=== PATIENT | female | born 1955 | race Hispanic/Latino ===

== ENCOUNTER 2017-11-02 07:32 | Emergency (ER) | payer BC, SELFPAY ==
[2017-11-02] MEDS ORDERED: MAGNE/ALUM HYDROXD 30 ML UCUP ONE (08:00)
[2017-11-02] MEDS ORDERED: LIDOCAINE VISCOUS 2% SOLN 15 ML UDC ONE (08:01)
[2017-11-02 08:21] LABS: Absolute Lymphocytes (CBC) 1.3 K/uL (0.7-4.9); Absolute Monocytes 0.5 K/uL (0.1-1.3); Absolute Neutrophil 3.5 K/uL (1.8-8.0); Basophils % 0.6 % (0-1.3); Eosinophils % 1.8 % (0-4.4); Hematocrit 40.5 % (36.0-45.0); Lymphocytes % 24.6 % (15.3-44.8); MCH 29.7 pg (27.0-35.0); MCV 87.5 fL (80-100); MPV 7.5 fL (7.6-11.3); Monocytes % 8.6 % (3.3-12.3); RBC Red Blood Cell Count 4.63 M/uL (3.86-4.86)
[2017-11-02 08:30] LABS: ALT/SGPT 255 U/L (12-78); Albumin 3.7 g/dL (3.4-5.0); Alkaline Phosphatase 179 U/L (45-117); BUN Blood Urea Nitrogen 12 mg/dL (7-18); Bicarbonate 29 mmol/L (21-32); Bilirubin Direct 0.2 mg/dL (0-0.2); Bilirubin Total 0.5 mg/dL (0.2-1.0); CKMB Creatine Kinase MB < 1.0 ng/mL (0.3-3.6); Creatine Phosphokinase 35 U/L (26-192); Glucose Level 108 mg/dL (74-106); Lipase 104 U/L (73-393); Potassium 3.8 mmol/L (3.5-5.1); Protein, Total 8.1 g/dL (6.4-8.2); Sodium Level 136 mmol/L (136-145)
[2017-11-02 08:34] LABS: AST/SGOT 411 U/L (15-37)
--- NOTE | 2017-11-02 08:53 | RAD REPORT ---
EXAM DESCRIPTION: RAD - Chest Single View - 11/02/2017 8:17 am CLINICAL HISTORY: CHEST PAIN Chest pain. COMPARISON: No comparisons FINDINGS: Portable technique limits examination quality. The lungs are grossly clear. The heart is normal in size. No displaced fractures. IMPRESSION: No acute intrathoracic process suspected.
--- NOTE | 2017-11-02 10:50 | EKG ---
Test Date: 2017-11-02 Test Time: 07:43:06 Horizontal Boring Mill Operator: MARILYN MEASUREMENT RESULTS: Intervals: Rate: 69 [place]: 172 QRSD: 88 QT: 408 QTc: 437 [place]: P: 30 [place]: 172 QRS: 5 T: 13 INTERPRETIVE STATEMENTS: Normal sinus rhythm Possible Anterior infarct, age undetermined Abnormal ECG No previous ECG available for comparison Electronically Signed On 11-02-17 10:49:30 CDT by Georges Deshpande
--- NOTE | 2017-11-02 10:53 | RAD REPORT ---
EXAM DESCRIPTION: CTAbdomen Pelvis W Contrast - 11/02/2017 10:37 am CLINICAL HISTORY: Abdominal pain. nausea, elevated LFT COMPARISON: No comparisons TECHNIQUE: Biphasic CT imaging of the abdomen and pelvis was performed with 100 ml non-ionic IV cont rast. All CT scans are performed using dose optimization technique as appropriate and may include automated exposure control or mA/KV adjustment according to patient size. FINDINGS: The lung bases are clear. Mild fatty liver is seen. Cholecystectomy is noted with mildly prominent intra and extrahepatic bilia ry tree, likely secondary to reservoir effect. The spleen, pancreas, adrenal glands and kidneys are w ithin normal limits. No bowel obstruction, free air, free fluid or abscess. The appendix is normal. No evidence of signi ficant lymphadenopathy. Lumbosacral degenerative changes. IMPRESSION: Fatty liver. Status post cholecystectomy.
--- NOTE | 2017-11-02 12:55 | ER ---
Nurse's Notes [facility] Name: Marce Vega Age: 62 yrs Sex: Female : 1955 Arrival Date: 11/02/2017 Time: 07:35 Bed 5 Private MD: Makeda Patton K Diagnosis: Chest pain, unspecified;Gastro-esophageal reflux disease Presentation: 11/02 07:38 Presenting complaint: Patient states: this morning around 0200 c/o nausea and sg midsternal chest pain described as burning, radiating to the back described as sharp pain, pt reports taking 2 pepcid for the burning sensation but no relief, pt reports having had to take BP meds in the past but was taken off the medications. Transition of care: patient was not received from another setting of care. Onset of symptoms was November 02, 2017. Risk Assessment: Do you want to hurt yourself or someone else? Patient reports no desire to harm self or others. Initial Sepsis Screen: Does the patient meet any 2 criteria? No. Patient's initial sepsis screen is negative. Does the patient have a suspected source of infection? No. Patient's initial sepsis screen is negative. Care prior to arrival: None. 07:38 Method Of Arrival: Ambulatory sg 07:38 Acuity: HOLLI 3 sg Historical: - Allergies: 07:40 No Known Allergies; sg - Home Meds: 07:56 Pepcid AC Oral [Active]; Cholesterol Medication [Active]; sg - PMHx: 07:40 High Cholesterol; Acid Reflux; sg - PSHx: 07:40 Cholecystectomy; Hysterectomy; sg - Immunization history:: Adult Immunizations up to date. - Social history:: Smoking status: Patient uses tobacco products, denies chronic smoking, but will smoke occasionally. - Ebola Screening: : Patient negative for fever greater than or equal to 101.5 degrees Fahrenheit, and additional compatible Ebola Virus Disease symptoms Patient denies exposure to infectious person Patient denies travel to an Ebola-affected area in the 21 days before illness onset No symptoms or risks identified at this time. - Family history:: not pertinent. - Hospitalizations: : No recent hospitalization is reported. Screenin:50 Abuse screen: Denies threats or abuse. Denies injuries from another. Nutritional sv screening: No deficits noted. Tuberculosis screening: No symptoms or risk factors identified. Fall Risk None identified. Assessment: 07:50 General: Appears in no apparent distress. uncomfortable, well developed, Behavior is sv calm, cooperative, appropriate for age, Reports that she started taking atorvastatin last week d/t high cholesterol levels and she did not take her dose last night. Pain: Complains of pain in epigastric area, right upper quadrant and left upper quadrant Pain does not radiate. Pain currently is 6 out of 10 on a pain scale. Quality of pain is described as burning, Pain began 0200 Is intermittent, Alleviated by nothing. Also complains of nausea. Neuro: Level of Consciousness is awake, alert, obeys commands, Oriented to person, place, time, situation, Moves all extremities. Full function. Cardiovascular: Patient's skin is warm and dry. Pulses are 3+ in right brachial artery and left brachial artery Rhythm is sinus rhythm. Respiratory: Respiratory effort is even, unlabored, Respiratory pattern is regular, symmetrical. GI: Reports epigastric pain, nausea. Derm: Skin is normal. Musculoskeletal: Range of motion: intact in all extremities. 09:15 Reassessment: Patient appears in no apparent distress at this time. Patient and/or sv family updated on plan of care and expected duration. Pain level reassessed. Patient is alert, oriented x 3, equal unlabored respirations, skin warm/dry/pink. Vital Signs: 07:37 Temp 97.3; sg 07:46 BP 135 / 86; Pulse 67; Resp 17; Temp 97.3(TE); Pulse Ox 96% on R/A; Weight 74.39 kg; sg Height 5 ft. 0 in. (152.40 cm); Pain 6/10; 09:00 BP 148 / 78; Pulse 63; Resp 18; Pulse Ox 97% on R/A; dh3 09:59 BP 141 / 76; Pulse 60 MON; Resp 15; Pulse Ox 97% on R/A; sv 10:30 BP 147 / 71; Pulse 54; Resp 15; Pulse Ox 97% on R/A; dh3 11:00 BP 149 / 67; Pulse 53; Resp 15; Pulse Ox 98% on R/A; dh3 12:00 BP 145 / 78; Pulse 54; Resp 16; Pulse Ox 99% on R/A; dh3 13:09 BP 146 / 72; Pulse 54; Resp 18; Temp 97.9; Pulse Ox 99% on R/A; ph 07:46 Body Mass Index 32.03 (74.39 kg, 152.40 cm) sg 09:59 Sinus Rhythm sv ED Course: 07:35 Patient arrived in ED. sb2 07:36 Makeda Patton MD is Private Physician. sb2 07:39 Triage completed. sg 07:39 Arm band placed on. sg 07:42 Mckinley Baron MD is Attending Physician. rn 07:43 Ariane Perkins RN is Primary Nurse. sv 07:50 Patient has correct armband on for positive identification. Placed in gown. Bed in low sv position. Call light in reach. awake overnight monitor on. Pulse ox on. NIBP on. Door closed. Head of bed elevated. 07:50 Initial lab(s) drawn, by me, sent to lab. Inserted saline lock: 20 gauge in left sv antecubital area, using aseptic technique. Blood collected. Flushed left antecubital with 5 ml normal saline. 07:50 Patient maintains SpO2 saturation greater than 95% on room air. sv 08:02 EKG done, by police crime scene technician. reviewed by Mckinley Baron MD. at1 08:12 X-ray(s) taken. sv 08:15 XRAY Chest (1 view) In Process Unspecified. EDMS 09:15 Warm blanket given. sv 10:35 CT completed. Patient tolerated procedure well. Patient moved to CT via wheelchair. mw3 Patient moved back from CT. 10:38 CT Abd/Pelvis - W/Contrast In Process Unspecified. EDMS 11:13 Repeat lab(s) drawn. by me, sent to lab. sv 12:54 Ney Velasquez MD is Referral Physician. rn Administered Medications: 08:07 Drug: GI Cocktail without - (Maalox Suspension 30 ml, Lidocaine Liquid 2 % 15 sv ml) Route: PO; 08:30 Follow up: Response: No adverse reaction sv Outcome: 12:55 Discharge ordered by . rn 13:10 Patient left the ED. ph Signatures: Dispatcher [employer] EDMS Ariane Perkins RN RN sv Singh Larsen RN RN sg Nieto, Roman, MD MD rn gonzales, Amanda, vascular neurologist EKG Tat1 Nohelia Gutierrez RN RN Marianela Storey 3 Gerri Alejandro sb2 Jennifer Cisneros mw3 Corrections: (The following items were deleted from the chart) 08:35 07:50 General: Appears in no apparent distress. uncomfortable, well developed, Behavior sv is calm, cooperative, appropriate for age, sv
--- NOTE | 2017-11-02 12:55 | EDPHYS ---
Physician Documentation [facility] Name: Marce Vega Age: 62 yrs Sex: Female : 1955 Arrival Date: 11/02/2017 Time: 07:35 Bed 5 Private MD: Makeda Patton K ED Physician Mckinley Baron HPI: 11/02 07:56 This 62 yrs old Female presents to ER via Ambulatory with complaints of Chest rn Pain, Nausea, Back Pain. 07:57 The patient or guardian reports chest pain that is located primarily in the substernal rn area. Onset: this morning. The pain radiates to The chest pain is described as burning. Duration: The patient or guardian reports a single episode, that is still ongoing. Severity of pain: At its worst the pain was mild in the emergency department the pain is unchanged. The patient has experienced a previous episode. Reports substernal chest pain/burning, radiates to back, began around 0200, assoc with nausea, had diarrhea earlier in week but resolved with Imodium. Denies fever/abd pain. . Historical: - Allergies: 07:40 No Known Allergies; sg - Home Meds: 07:56 Pepcid AC Oral [Active]; Cholesterol Medication [Active]; sg - PMHx: 07:40 High Cholesterol; Acid Reflux; sg - PSHx: 07:40 Cholecystectomy; Hysterectomy; sg - Immunization history:: Adult Immunizations up to date. - Social history:: Smoking status: Patient uses tobacco products, denies chronic smoking, but will smoke occasionally. - Ebola Screening: : Patient negative for fever greater than or equal to 101.5 degrees Fahrenheit, and additional compatible Ebola Virus Disease symptoms Patient denies exposure to infectious person Patient denies travel to an Ebola-affected area in the 21 days before illness onset No symptoms or risks identified at this time. - Family history:: not pertinent. - Hospitalizations: : No recent hospitalization is reported. ROS: 07:57 Constitutional: Negative for fever, chills, and weight loss, Eyes: Negative for injury, rn pain, redness, and discharge, Neck: Negative for injury, pain, and swelling, Cardiovascular: + chest pain Respiratory: Negative for shortness of breath, cough, wheezing, and pleuritic chest pain, Abdomen/GI: Negative for abdominal pain, diarrhea, and constipation, Back: Negative for injury and pain, MS/Extremity: Negative for injury and deformity, Skin: Negative for injury, rash, and discoloration, Neuro: Negative for headache, weakness, numbness, tingling, and seizure. Exam: 07:57 Constitutional: This is a well developed, well nourished patient who is awake, alert, rn and in no acute distress. Head/Face: Normocephalic, atraumatic. Eyes: Pupils equal round and reactive to light, extra-ocular motions intact. Lids and lashes normal. Conjunctiva and sclera are non-icteric and not injected. Cornea within normal limits. Periorbital areas with no swelling, redness, or edema. Neck: Trachea midline, no thyromegaly or masses palpated, and no cervical lymphadenopathy. Supple, full range of motion without nuchal rigidity, or vertebral point tenderness. No Meningismus. Cardiovascular: Regular rate and rhythm with a normal S1 and S2. No gallops, murmurs, or rubs. Normal PMI, no JVD. No pulse deficits. Respiratory: Lungs have equal breath sounds bilaterally, clear to auscultation and percussion. No rales, rhonchi or wheezes noted. No increased work of breathing, no retractions or nasal flaring. Abdomen/GI: Soft, non-tender, with normal bowel sounds. No distension or tympany. No guarding or rebound. No evidence of tenderness throughout. MS/ Extremity: Pulses equal, no cyanosis. Neurovascular intact. Full, normal range of motion. Equal circumference. Neuro: Awake and alert, GCS 15, oriented to person, place, time, and situation. Cranial nerves II-XII grossly intact. Motor strength 5/5 in all extremities. Sensory grossly intact. Cerebellar exam normal. Normal gait. Vital Signs: 07:37 Temp 97.3; sg 07:46 BP 135 / 86; Pulse 67; Resp 17; Temp 97.3(TE); Pulse Ox 96% on R/A; Weight 74.39 kg; sg Height 5 ft. 0 in. (152.40 cm); Pain 6/10; 09:00 BP 148 / 78; Pulse 63; Resp 18; Pulse Ox 97% on R/A; dh3 09:59 BP 141 / 76; Pulse 60 MON; Resp 15; Pulse Ox 97% on R/A; sv 10:30 BP 147 / 71; Pulse 54; Resp 15; Pulse Ox 97% on R/A; dh3 11:00 BP 149 / 67; Pulse 53; Resp 15; Pulse Ox 98% on R/A; dh3 12:00 BP 145 / 78; Pulse 54; Resp 16; Pulse Ox 99% on R/A; dh3 13:09 BP 146 / 72; Pulse 54; Resp 18; Temp 97.9; Pulse Ox 99% on R/A; ph 07:46 Body Mass Index 32.03 (74.39 kg, 152.40 cm) sg 09:59 Sinus Rhythm sv MDM: 07:42 Patient medically screened. rn 12:52 Differential diagnosis: esophagitis, gastritis, gastroesophageal reflux disease (GERD), rn pancreatitis, peptic ulcer disease, pleurisy. Data reviewed: vital signs, nurses notes, lab test result(s), EKG, radiologic studies, CT scan, and as a result, I will discharge patient. Counseling: I had a detailed discussion with the patient and/or guardian regarding: the historical points, exam findings, and any diagnostic results supporting the discharge/admit diagnosis, lab results, radiology results, the need for outpatient follow up, to return to the emergency department if symptoms worsen or persist or if there are any questions or concerns that arise at home. Response to treatment: the patient's symptoms have mildly improved after treatment. Special discussion: I discussed with the patient/guardian in detail that at this point there is no indication for admission to the hospital. It is understood, however, that if the symptoms persist or worsen the patient needs to return immediately for re-evaluation. ED course: Recommend GI f/u and daily antacid medication, CT shows only fatty liver and has had gallbladder removed, will dc home. . 11/02 07:52 Order name: Basic Metabolic Panel; Complete Time: 09:24 11/02 07:52 Order name: CBC with Diff; Complete Time: 08: rn 11/02 07:52 Order name: Ckmb; Complete Time: 09:24 rn 11/02 07:52 Order name: CPK; Complete Time: 09: rn 11/02 07:52 Order name: LFT's; Complete Time: 09:24 rn 11/02 07:52 Order name: Troponin (emerg Dept Use Only); Complete Time: 08:11/02 07:52 Order name: XRAY Chest (1 view); Complete Time: 09:24 rn 11/02 07:52 Order name: EKG; Complete Time: 07:52 rn 11/02 07:52 Order name: Cardiac monitoring; Complete Time: 08:08 rn 11/02 07:52 Order name: Lipase; Complete Time: 09:24 rn 11/02 08:24 Order name: Urine Dipstick--Ancillary (enter results) ag 11/02 08:34 Order name: CT Abd/Pelvis - W/Contrast; Complete Time: 11:04 rn 11/02 11:04 Order name: Troponin (emerg Dept Use Only); Complete Time: 12:52 rn 11/02 07:52 Order name: EKG - Nurse/Tech; Complete Time: 08:08 rn 11/02 07:52 Order name: IV Saline Lock; Complete Time: 08:08 rn 11/02 07:52 Order name: Labs collected and sent; Complete Time: 08:08 rn 11/02 07:52 Order name: O2 Per Protocol; Complete Time: 08:08 rn 11/02 07:52 Order name: O2 Sat Monitoring; Complete Time: 08:08 rn 11/02 07:52 Order name: Urine Dipstick-Ancillary (obtain specimen); Complete Time: 08:08 rn Administered Medications: 08:07 Drug: GI Cocktail without - (Maalox Suspension 30 ml, Lidocaine Liquid 2 % 15 sv ml) Route: PO; 08:30 Follow up: Response: No adverse reaction sv Disposition: 11/02/17 12:55 Discharged to Home. Impression: Chest pain, unspecified, Gastro-esophageal reflux disease. - Condition is Stable. - Discharge Instructions: Nonspecific Chest Pain, Gastroesophageal Reflux Disease, Adult. - Medication Reconciliation Form, Thank You Letter, Antibiotic Education, Prescription Opioid Use, Work release form form. - Follow up: Ney Velasquez MD; When: As needed; Reason: Recheck today's complaints, Re-evaluation by your physician. - Problem is new. - Symptoms have improved. Signatures: Dispatcher [employer] Ariane Arrington RN RN sv Gay, Steven, RN RN sg Nieto, Roman, MD MD rn Hall, Patricia, RN RN ph Corrections: (The following items were deleted from the chart) 13:10 12:55 11/02/2017 12:55 Discharged to Home. Impression: Chest pain, unspecified; ph Gastro-esophageal reflux disease. Condition is Stable. Forms are Medication Reconciliation Form, Thank You Letter, Antibiotic Education, Prescription Opioid Use. Follow up: Ney Velasquez; When: As needed; Reason: Recheck today's complaints, Re-evaluation by your physician. Problem is new. Symptoms have improved. rn
[2017-11-02 15:10] LABS: Urine Blood 2+ (NEG); Urine Glucose NEGATIVE (NEG); Urine Protein TRACE (NEG); Urine Specific Gravity 1.015 (1.005-1.030)
== END 2017-11-02 13:10 | disposition home or self-care (01) ==
LOC: ER 07:32
DX: K21.9 Gastro-esophageal reflux disease without esophagitis (principal); E78.00 Pure hypercholesterolemia, unspecified; Z72.0 Tobacco use
CPT/HCPCS: 36415; 71045; 74177; 80048; 80076; 81003; 82550; 82553; 83690; 84484; 85025; 93005; 99285; Q9967

== ENCOUNTER 2019-02-22 15:05 | Emergency (ER) | payer SELFPAY ==
[2019-02-22 16:06] LABS: Absolute Lymphocytes (CBC) 2.9 K/uL (0.7-4.9); Basophils % 0.7 % (0-1.3); Hematocrit 37.4 % (36.0-45.0); MPV 7.8 fL (7.6-11.3); RBC Red Blood Cell Count 4.21 M/uL (3.86-4.86)
[2019-02-22 16:10] LABS: Protime INR 1.07
[2019-02-22 16:25] LABS: ALT/SGPT 72 U/L (12-78); AST/SGOT 38 U/L (15-37); Albumin 3.9 g/dL (3.4-5.0); Alkaline Phosphatase 128 U/L (45-117); BUN Blood Urea Nitrogen 10 mg/dL (7-18); Bicarbonate 27 mmol/L (21-32); Bilirubin Direct < 0.1 mg/dL (0-0.2); Bilirubin Total 0.4 mg/dL (0.2-1.0); Glucose Level 97 mg/dL (74-106); Magnesium 2.3 mg/dL (1.8-2.4); NT PRO-BNP 22 pg/mL (<125); Potassium 3.9 mmol/L (3.5-5.1); Protein, Total 7.7 g/dL (6.4-8.2); Sodium Level 141 mmol/L (136-145); Troponin (Emerg Dept Use Only) < 0.02 ng/mL (0.0-0.045)
--- NOTE | 2019-02-22 16:27 | RAD REPORT ---
EXAM DESCRIPTION: RAD - Chest Single View - 02/22/2019 4:03 pm CLINICAL HISTORY: Abdominal pain, epigastric pain COMPARISON: October 2017 TECHNIQUE: AP portable chest image was obtained 1600 hours . FINDINGS: Lungs are clear. Right hemidiaphragm elevation again noted. Trachea is midline. Heart and vasculature are normal. No measurable pleural effusion and no pneumothorax. No acute bony abnormality seen. No acute aortic findings suspected. IMPRESSION: No acute cardiopulmonary process. No significant change from comparison.
--- NOTE | 2019-02-22 17:13 | EKG ---
Test Date: 2019-02-22 Test Time: 15:12:41 Administrative Volunteer: MARILYN MEASUREMENT RESULTS: Intervals: Rate: 49 [place]: 178 QRSD: 86 QT: 434 QTc: 392 [place]: P: 41 [place]: 178 QRS: 14 T: 31 INTERPRETIVE STATEMENTS: Sinus bradycardia Possible Anterior infarct, age undetermined Abnormal ECG Compared to ECG 11/02/2017 07:43:06 Sinus rhythm no longer present Myocardial infarct finding still present Electronically Signed On 02-22-19 17:12:33 CDT by Georges Deshpande
--- NOTE | 2019-02-22 17:38 | ER ---
Nurse's Notes [facility] Name: Marce Vega Age: 63 yrs Sex: Female : 1955 Arrival Date: 02/22/2019 Time: 15:07 Bed 5 Private MD: Diagnosis: Epigastric pain Presentation: 02/22 15:09 Presenting complaint: Intermittent epigastric pain and nausea x 5 days. Pt reports hb of father 1 week ago, she was sole caregiver. Transition of care: patient was not received from another setting of care. Onset of symptoms was February 18, 2019. Risk Assessment: Do you want to hurt yourself or someone else? Patient reports no desire to harm self or others. Initial Sepsis Screen: Does the patient meet any 2 criteria? No. Patient's initial sepsis screen is negative. Does the patient have a suspected source of infection? No. Patient's initial sepsis screen is negative. Care prior to arrival: None. 15:09 Method Of Arrival: Ambulatory hb 15:09 Acuity: HOLLI 3 hb Triage Assessment: 15:10 General: Appears in no apparent distress. comfortable, Behavior is cooperative, bp appropriate for age, anxious. Pain: Complains of pain in epigastric area. EENT: No deficits noted. Neuro: No deficits noted. Cardiovascular: Rhythm is sinus bradycardia. Respiratory: No deficits noted. GI: Abdomen is obese. : No signs and/or symptoms were reported regarding the genitourinary system. Musculoskeletal: No deficits noted. Historical: - Allergies: 15:11 No Known Allergies; hb - Home Meds: 15:11 cholesterol medication [Active]; Pepcid AC Oral [Active]; hb - PMHx: 15:11 acid reflux; High Cholesterol; hb - PSHx: 15:11 Cholecystectomy; Hysterectomy; hb - Immunization history:: Adult Immunizations up to date. - Social history:: Smoking status: Patient/guardian denies using tobacco. - Ebola Screening: : No symptoms or risks identified at this time. Screenin:01 Abuse screen: Denies threats or abuse. Denies injuries from another. Nutritional mg2 screening: No deficits noted. Tuberculosis screening: No symptoms or risk factors identified. Fall Risk IV access (20 points). Assessment: 16:02 General: Appears in no apparent distress. comfortable, Behavior is calm, cooperative. mg2 Pain: Complains of pain in epigastrium Pain does not radiate. Pain currently is 4 out of 10 on a pain scale. Quality of pain is described as aching, Pain began gradually. Neuro: Level of Consciousness is awake, alert, obeys commands, Oriented to person, place, time, situation. Cardiovascular: Capillary refill < 3 seconds Patient's skin is warm and dry. Respiratory: Airway is patent Respiratory effort is even, unlabored, Respiratory pattern is regular, symmetrical. GI: Reports epigastric pain, nausea. : No signs and/or symptoms were reported regarding the genitourinary system. EENT: No signs and/or symptoms were reported regarding the EENT system. Derm: Skin is intact, is healthy with good turgor, Skin is pink, warm \T\ dry. normal. Musculoskeletal: Circulation, motion, and sensation intact. Capillary refill < 3 seconds. 17:58 Reassessment: Patient states feeling better. mg2 Vital Signs: 15:11 BP 183 / 95; Pulse 56; Resp 16; Temp 97.8; Pulse Ox 100% on R/A; Weight 74.39 kg; hb Height 5 ft. (152.40 cm); Pain 0/10; 17:39 BP 149 / 75; Pulse 55; Resp 18; Pulse Ox 100% on R/A; mg2 15:11 Body Mass Index 32.03 (74.39 kg, 152.40 cm) hb ED Course: 15:07 Patient arrived in ED. mr 15:10 Triage completed. hb 15:12 Arm band placed on. hb 15:19 Darrius Phillip PA is PHCP. cp 15:19 Jas Martin MD is Attending Physician. cp 15:23 EKG done, by data technical lead. reviewed by Jas Martin MD. sm3 15:44 Melvin Loomis, CORNELIA is Primary Nurse. mg2 16:01 Patient has correct armband on for positive identification. low altitude air defense gunner on. Pulse mg2 ox on. NIBP on. Door closed. Warm blanket given. 16:02 XRAY Chest (1 view) In Process Unspecified. EDMS 16:05 No provider procedures requiring assistance completed. Inserted saline lock: 22 gauge mg2 in right antecubital area, using aseptic technique. Blood collected. 16:38 LAB Add On Sent. mh5 16:38 Lipase Sent. mh5 17:58 IV discontinued, intact, bleeding controlled, No redness/swelling at site. Pressure mg2 dressing applied. Administered Medications: No medications were administered Outcome: 17:37 Discharge ordered by . reggie 17:58 Discharged to home ambulatory. mg2 17:58 Condition: stable 17:58 Discharge instructions given to patient, Instructed on discharge instructions, follow up and referral plans. Demonstrated understanding of instructions, follow-up care. 17:59 Patient left the ED. mg2 Signatures: Dispatcher [employer] ED Mecca Vanessa mr Darrius Phillip PA PA cp Baxter, Heather, RN RN Kisha South 5 Ravi Palomares RN RN bp Melvin Loomis RN RN mg2 Maryan Gu 3 Corrections: (The following items were deleted from the chart) 15:13 15:09 Presenting complaint: Epigastric pain and nausea x 5 days. hb hb 15:16 15:11 BP 183 / 95; Pulse 88bpm; Resp 16bpm; Pulse Ox 100% RA; Temp 97.8F; 74.39 kg; hb Height 5 ft.; BMI: 32.0; Pain 0/10; hb
--- NOTE | 2019-02-22 17:38 | EDPHYS ---
Physician Documentation [facility] Name: Marce Vega Age: 63 yrs Sex: Female : 1955 Arrival Date: 02/22/2019 Time: 15:07 Bed 5 Private MD: ED Physician Jas Martin HPI: 02/22 15:50 This 63 yrs old Female presents to ER via Ambulatory with complaints of EKG. cp 15:50 The patient presents with abdominal pain in the epigastric area. Onset: The cp symptoms/episode began/occurred episodes this past Monday and Monday. No pain since and no current pain. The symptoms do not radiate. Associated signs and symptoms: Pertinent positives: nausea, Pertinent negatives: chest pain, constipation, diarrhea, fever, shortness of breath, vomiting. The symptoms are described as intermittent. Patient reports she was referred to ED from clinic for EKG. Historical: - Allergies: 15:11 No Known Allergies; hb - Home Meds: 15:11 cholesterol medication [Active]; Pepcid AC Oral [Active]; hb - PMHx: 15:11 acid reflux; High Cholesterol; hb - PSHx: 15:11 Cholecystectomy; Hysterectomy; hb - Immunization history:: Adult Immunizations up to date. - Social history:: Smoking status: Patient/guardian denies using tobacco. - Ebola Screening: : No symptoms or risks identified at this time. ROS: 15:50 Constitutional: Negative for chills, fever, poor PO intake. cp 15:50 Eyes: Negative for injury, pain, redness, and discharge. cp 15:50 ENT: Negative for drainage from ear(s), ear pain, sore throat, difficulty swallowing, difficulty handling secretions. 15:50 Cardiovascular: Negative for chest pain, edema, palpitations. 15:50 Respiratory: Negative for cough, shortness of breath, wheezing. 15:50 Abdomen/GI: Positive for abdominal pain, nausea, of the epigastric area, Negative for vomiting, diarrhea, constipation, anorexia, black/tarry stool, rectal bleeding. 15:50 Back: Negative for radiated pain. 15:50 : Negative for urinary symptoms. 15:50 Neuro: Negative for altered mental status, headache, weakness. 15:50 All other systems are negative. Exam: 15:45 ECG was reviewed by the Attending Physician. cp 16:05 Constitutional: The patient appears in no acute distress, alert, awake, comfortable, cp non-diaphoretic, non-toxic, well developed, well nourished. 16:05 Head/Face: Normocephalic, atraumatic. Eyes: Pupils equal round and reactive to light, cp extra-ocular motions intact. Lids and lashes normal. Conjunctiva and sclera are non-icteric and not injected. Cornea within normal limits. Periorbital areas with no swelling, redness, or edema. ENT: Nares patent. No nasal discharge, no septal abnormalities noted. Tympanic membranes are normal and external auditory canals are clear. Oropharynx with no redness, swelling, or masses, exudates, or evidence of obstruction, uvula midline. Mucous membranes moist. Chest/axilla: Normal chest wall appearance and motion. Nontender with no deformity. No lesions are appreciated. 16:05 Cardiovascular: Rate: bradycardic, Rhythm: regular, Heart sounds: murmur, not appreciated, Edema: is not appreciated, JVD: is not appreciated. 16:05 Respiratory: the patient does not display signs of respiratory distress, Respirations: normal, no use of accessory muscles, no retractions, no splinting, no tachypnea, labored breathing, is not present, Breath sounds: are clear throughout, no decreased breath sounds, no stridor, no wheezing. 16:05 Abdomen/GI: Inspection: abdomen appears normal, Palpation: abdomen is soft and non-tender, in all quadrants. 16:05 Back: pain, is absent, ROM is normal. 16:05 Neuro: Orientation: to person, place \T\ time. Mentation: is normal, Motor: moves all fours, strength is normal, Sensation: is normal. Vital Signs: 15:11 BP 183 / 95; Pulse 56; Resp 16; Temp 97.8; Pulse Ox 100% on R/A; Weight 74.39 kg; hb Height 5 ft. (152.40 cm); Pain 0/10; 17:39 BP 149 / 75; Pulse 55; Resp 18; Pulse Ox 100% on R/A; mg2 15:11 Body Mass Index 32.03 (74.39 kg, 152.40 cm) hb MDM: 15:37 Patient medically screened. cp 16:00 Differential diagnosis: gastritis, GI Bleed, pancreatitis, Peptic Ulcer Disease, Perf. cp Duodenal Ulcer, Perf. Gastric Ulcer, Pyelonephritis, Ureterolithiasis, urinary tract infection, acute ID, angina. 17:37 Data reviewed: vital signs, nurses notes, lab test result(s), EKG, radiologic studies, cp plain films. 17:37 Test interpretation: by ED physician or midlevel provider: ECG, plain radiologic cp studies. Counseling: I had a detailed discussion with the patient and/or guardian regarding: the historical points, exam findings, and any diagnostic results supporting the discharge/admit diagnosis, the presence of at least one elevated blood pressure reading (>120/80) during this emergency department visit, lab results, the need for outpatient follow up, a family practitioner, to return to the emergency department if symptoms worsen or persist or if there are any questions or concerns that arise at home. 02/22 15:46 Order name: Basic Metabolic Panel; Complete Time: 16:31 02/22 16:31 Interpretation: Normal except: CL 108. 02/22 15:46 Order name: CBC with Diff; Complete Time: 16:34 02/22 16:34 Interpretation: Reviewed. 02/22 15:46 Order name: LFT's; Complete Time: 16:31 02/22 16:31 Interpretation: Normal except: AST 38; ALK 128; GLOB 3.8; A/G 1.0. 02/22 15:46 Order name: Magnesium; Complete Time: 16:31 cp 02/22 15:46 Order name: NT PRO-BNP; Complete Time: 16:31 cp 02/22 15:46 Order name: PT-INR; Complete Time: 16:31 cp 02/22 17:00 Interpretation: Normal except: PT 12.6. 02/22 15:46 Order name: Troponin (emerg Dept Use Only); Complete Time: 16:31 cp 02/22 15:46 Order name: XRAY Chest (1 view); Complete Time: 16:31 cp 02/22 15:46 Order name: EKG; Complete Time: 15:46 cp 02/22 15:46 Order name: Cardiac monitoring; Complete Time: 15:58 cp 02/22 16:32 Order name: Lipase; Complete Time: 16:49 cp 02/22 17:01 Interpretation: Abnormal: LIP 69. cp 02/22 16:34 Order name: LAB Add On cp 02/22 17:35 Order name: Urine Dipstick--Ancillary (enter results) eb 02/22 15:46 Order name: EKG - Nurse/Tech; Complete Time: 15:49 cp 02/22 15:46 Order name: IV Saline Lock; Complete Time: 16:01 02/22 15:46 Order name: Labs collected and sent; Complete Time: 16:01 02/22 15:46 Order name: O2 Per Protocol; Complete Time: 16:01 02/22 15:46 Order name: O2 Sat Monitoring; Complete Time: 16:01 02/22 17:01 Order name: Urine Dipstick-Ancillary (obtain specimen); Complete Time: 17:32 02/22 17:36 Order name: Vital Signs: please update; Complete Time: 17:39 cp EC:45 Rate is 49 beats/min. Rhythm is regular. NM interval is normal. QRS interval is normal. cp QT interval is normal. Interpreted by me. Reviewed by me. Administered Medications: No medications were administered Disposition: 02/22/19 17:37 Discharged to Home. Impression: Epigastric pain. - Condition is Stable. - Discharge Instructions: Abdominal Pain, Adult. - Medication Reconciliation Form, Thank You Letter, Antibiotic Education, Prescription Opioid Use form. - Follow up: Private Physician; When: 2 - 3 days; Reason: Recheck today's complaints. - Problem is new. - Symptoms are resolved. Addendum: 02/24/2019 22:44 Co-signature as Attending Physician, Jas Martin MD. g s Signatures: Dispatcher [employer] [facility] Darrius Phillip PA PA cp Baxter, Heather, RN RN Jas Martin MD MD Melvin Loomis RN RN mg2 Corrections: (The following items were deleted from the chart) 02/22 16:53 16:34 Abdomen Limited+US.RAD.BRZ ordered. [facility] EDCO 17:59 17:37 02/22/2019 17:37 Discharged to Home. Impression: Epigastric pain. Condition is mg2 Stable. Forms are Medication Reconciliation Form, Thank You Letter, Antibiotic Education, Prescription Opioid Use. Follow up: Private Physician; When: 2 - 3 days; Reason: Recheck today's complaints. Problem is new. Symptoms are resolved. cp
[2019-02-22 17:39] LABS: Urine Blood 2+ (NEG); Urine Glucose NEGATIVE (NEG); Urine Protein NEGATIVE (NEG); Urine Specific Gravity 1.015 (1.005-1.030); Urine pH 5.5 (5.0-7.0)
[2019-02-22 18:04] VITALS: TEMP 97.8; O2SAT 100
[2019-02-22 18:05] VITALS: BP 149/75
== END 2019-02-22 17:59 | disposition home or self-care (01) ==
LOC: ER 15:05
DX: R10.13 Epigastric pain (principal); E78.00 Pure hypercholesterolemia, unspecified
CPT/HCPCS: 36415; 71045; 80048; 80076; 81003; 83690; 83735; 83880; 84484; 85025; 85610; 93005; 99284

== ENCOUNTER 2019-11-04 09:09 | Emergency (ER) | payer OTHER ==
[2019-11-04] MEDS ORDERED: ONDANSETRON 4 MG/2 ML VIAL ONE (09:54)
[2019-11-04] MEDS ORDERED: MORPHINE 4 MG/ML SYR ONE (09:54)
[2019-11-04] MEDS ORDERED: NA CHLORIDE 0.9% 1,000 ML ONE (09:54)
[2019-11-04 10:05] LABS: Absolute Lymphocytes (CBC) 2.2 K/uL (0.7-4.9); Basophils % 0.2 % (0-1.3); Hematocrit 43.3 % (36.0-45.0); Lymphocytes % 17.2 % (15.3-44.8); MPV 7.8 fL (7.6-11.3); RBC Red Blood Cell Count 4.91 M/uL (3.86-4.86)
[2019-11-04 10:22] LABS: ALT/SGPT 27 U/L (12-78); AST/SGOT 23 U/L (15-37); Albumin 3.7 g/dL (3.4-5.0); Alkaline Phosphatase 137 U/L (45-117); BUN Blood Urea Nitrogen 17 mg/dL (7-18); Bicarbonate 25 mmol/L (21-32); Bilirubin Direct 0.2 mg/dL (0-0.2); Bilirubin Total 0.6 mg/dL (0.2-1.0); Glucose Level 109 mg/dL (74-106); Lipase 82 U/L (73-393); Potassium 3.6 mmol/L (3.5-5.1); Protein, Total 7.8 g/dL (6.4-8.2); Sodium Level 138 mmol/L (136-145)
--- OUTSIDE RECORDS SUMMARY | 2019-11-04 10:23 | XMS REPORT | Continuity of Care Document ---
:1955 Author Organization [facility] t Address [address] [place] [address] Care Team Providers Name Role Phone Hamzah SOLIS S Attending Clinician Doctor Unassigned, Name Attending Clinician Unavailable Pob, Lab Main Attending Clinician Unavailable Problems This patient has no known problems. Allergies, Adverse Reactions, Alerts This patient has no known allergies or adverse reactions. Medications This patient has no known medications. Procedures This patient has no known procedures. Encounters Start End Encounter Admission Attending Care Care Encounter Source Date/Time Date/Time Type Type Clinicians Facility Department ID 2019-10-29 2019-10-29 Telephone JOON Goodson .2.840.114 [id number] 00:00:00 00:00:00 Sanjana POSEYY [id number] [id number] 2019-10-24 2019-10-[address]840.114 7 [id number] 09:28:00 23:59:00 Encounter Sanjana Saez HEALTH [id number] [facility] 4.2.7.2.686 [id number] 2019-10-24 2019-10-[address]114 7 [id number] 09:00:00 09:27:00 Encounter Sanjana Saez HEALTH [id number] [facility] 4.2.7.2.686 [id number] 2019-10-24 2019-10-24 Patient BEA Goodson [id number] 00:00:00 00:00:00 Secure Msg Sanjana Acevedo [id number] Post 4.2.7.2.686 Professio [id number] [address] 2019-10-23 2019-10-[address]114 7 [id number] 11:35:00 23:59:00 Encounter Sanjana Saez HEALTH [id number] CLINICS 4.2.7.2.686 [id number] 2019-10-23 2019-10-[address]114 7 [id number] 10:45:00 11:34:00 Encounter Sanjana Saez HEALTH [id number] [facility] 4.2.7.2.686 [id number] 2019-10-23 2019-10-[address]114 7 [id number] 09:31:00 10:44:00 Encounter Sanjana Saez HEALTH [id number] CLINICS 4.2.7.2.686 [id number] 2019-10-17 2019-10-17 Orders Doctor JOON [id number] 00:00:00 00:00:00 Only Unassigned, ROWENA 350.1.13.10 [facility] 4.2.7.2.686 [id number] 2019-10-16 2019-10-16 [facility] 1.2.840.114 [id number] 00:00:00 00:00:00 Sanjana Acevedo 350.1.13.10 Post 4.2.7.2.686 Professio [id number] [address] 2019-10-15 2019-10-15 Orders Doctor JOON [id number] 00:00:00 00:00:00 Only Unassigned, ROWENA 350.1.13.10 [facility] 4.2.7.2.686 [id number] 2019-10-08 2019-10-08 Wax Machine Operator Diana Vanessa [facility] 1.2.840.114 [id number] 09:13:15 09:28:15 Visit Lab Main Curtis [id number] Post 4.2.7.2.686 Professio [id number] [facility] [address] [facility] 2019-10-08 2019-10-08 Orders Doctor JOON 1.2.840.114 [id number] 00:00:00 00:00:00 Only Unassigned, ROWENA 350.1.13.10 [facility] .2.7.2.686 [id number] 2019-10-07 2019-10-07 [facility] 1.2.840.114 [id number] 08:47:00 23:59:00 Encounter Sanjana Acevedo 350.1.13.10 Post 4.2.7.2.686 [place] [id number] 2019-10-07 2019-10-07 [facility] 1.2.840.114 [id number] 08:39:00 08:46:00 Encounter Sanjana Acevedo 350.1.13.10 Post 4.2.7.2.686 [place] [id number] 2019-10-01 2019-10-01 Office [facility] [id number] 14:33:53 16:43:58 Visit Sanjana Acevedo 350.1.13.10 Post 4.2.7.2.686 [facility] [id number] [address] Results Test Description Test Time Test Comments Results Result [facility] e Comments BREAST ULTRASOUND 2018-12-06 - BREAST ULTRASOUND RIGHT 10:27:50 RIGHTULTRASOUND OF RIGHT BREAST AND RIGHT AXILLA: 12/06/2018CLINICAL: Right breast tenderness. Comparison is made to exams dated 05/24/2011 ultrasound - [facility] and 12/06/2018 mammogram - [facility]-. Ultrasound of the right breast and axilla was performed. Jaeger scale images of the real-time examination were reviewed. At the 7 o'clock position, 4 cm from the nipple, there is a minimally complicated cyst measuring 0.7 cm in the long axis. Similar lesion noted at the 10 o'clock position, 2 cm from the nipple, measuring 0.3 cm. No additional sonographic findings within the right breast or axilla.IMPRESSION: BENIGN There is no sonographic evidence of malignancy. Benign sonographic findings of the right breast. Resume annual screening mammography in one year. Eamon enamorado/:12/06/2018 10:27:50 Lawn Care Professional: Carla VALENCIA, [facility]-FWletter sent: BIRADS 1-2 Combo FU Letter Ultrasound BI-RADS: 2 Benign DIAG MAMM 2018-12-06 - DIAG MAMM BILATERAL BILATERAL TIM 10:26:05 TIM CAD CAD DIGITAL DIGITALBILATERAL DIGITAL DIAGNOSTIC MAMMOGRAM 3D/2D WITH CAD: 12/06/2018CLINICAL: Focal pain, right breast. Digital breast tomosynthesis was performed in addition to routine CC and MLO views. Current mammographic images were evaluated by either a [facility] M-Vu or a [employer] ImageChecker CAD (computer aided detection system). Comparison is made to exams dated 05/19/2011 mammogram - [facility] and 02/11/2002 mammogram - [facility]. There are scattered fibroglandular tissues in both breasts. No suspicious mass, architectural distortion, malignant type calcification, or lymph node abnormality detected. IMPRESSION: INCOMPLETE ASSESSMENT: ADDITIONAL IMAGING EVALUATION RECOMMENDEDBenign findings bilateral mammogram. Additional evaluation of the right breast clinical symptoms with right breast ultrasound is requested and currently in progress.Eamon enamorado/:12/06/2018 10:26:05 Lawn Care Professional: Jennifer VALENCIA, [facility]-FWMammogram BI-RADS: 0 Indeterminate
--- NOTE | 2019-11-04 10:45 | RAD REPORT ---
EXAM DESCRIPTION: CT - Abdomen Pelvis W Contrast - 11/04/2019 10:01 am CLINICAL HISTORY: Abdominal pain COMPARISON: none. TECHNIQUE: Computed axial tomography of the abdomen pelvis was obtained. 100 cc Isovue-300 was admin istered intravenously. Oral contrast was not requested which limits evaluation of bowel. All CT scans are performed using dose optimization technique as appropriate and may include automated exposure control or mA/KV adjustment according to patient size. FINDINGS: 16 millimeter soft tissue structure is suspected within the midpole of the right kidney. Left kidney is unremarkable Cholecystectomy Liver, spleen, pancreas and adrenals are unremarkable. There is no evidence of diverticulitis. Hysterectomy IMPRESSION: 16 millimeter soft tissue structure midpole of the right kidney probably is a solid mass rather than a prominent column of Vince. It is recommended patient have a nonemergent MRI for confi rmation.
[2019-11-04 11:01] LABS: Blood Morphology Comment NOT SEEN (NOT SEEN); Platelet Estimate ADEQ
[2019-11-04 11:04] LABS: Urine Blood 3+ (NEG); Urine Glucose NEGATIVE (NEG); Urine Protein 2+ (NEG); Urine Specific Gravity 1.025 (1.005-1.030)
[2019-11-04 11:06] LABS: Urine Bacteria >50 /HPF (<20); Urine Culture Reflex Order REFLEXED; Urine RBC >50 /HPF (NONE SEEN)
[2019-11-04] MEDS ORDERED: FLEET ENEMA ADULT PR ONE (12:10)
[2019-11-04] MEDS ORDERED: CEFTRIAXONE/SWI 1gm 1 GM/10 ML SYR ONE (12:16)
[2019-11-04] MEDS ORDERED: PANTOPRAZOLE 40 MG INJ ONE (12:39)
--- NOTE | 2019-11-04 12:43 | ER ---
Nurse's Notes [facility] Name: Marce Vega Age: 64 yrs Sex: Female : 1955 Arrival Date: 11/04/2019 Time: 09:10 Bed 2 Private MD: Berenice Munoz R Diagnosis: Cystitis, unspecified without hematuria;Constipation Presentation: 11/03 09:35 Chief complaint: N/V and lower abdominal pain since last night. Not tolerating fluids. hb Pt has stage 2 breast CA, sees Dr. Howard, had first round of chemo last week. Coronavirus screen: Proceed with normal triage. Ebola Screen: No symptoms or risks identified at this time. Initial Sepsis Screen: Does the patient meet any 2 criteria? HR > 90 bpm. No. Patient's initial sepsis screen is negative. Does the patient have a suspected source of infection? No. Patient's initial sepsis screen is negative. Risk Assessment: Do you want to hurt yourself or someone else? Patient reports no desire to harm self or others. Onset of symptoms was November 03, 2019. 09:35 Method Of Arrival: Ambulatory 09:35 Acuity: HOLLI 3 hb Triage Assessment: 09:40 General: Appears in no apparent distress. uncomfortable, Behavior is calm, cooperative. hb Pain: Pain currently is 7 out of 10 on a pain scale. EENT: No signs and/or symptoms were reported regarding the EENT system. Neuro: Level of Consciousness is awake, alert, obeys commands, Oriented to person, place, time, situation. Cardiovascular: Capillary refill < 3 seconds Patient's skin is warm and dry. Respiratory: Airway is patent Respiratory effort is even, unlabored, Respiratory pattern is regular, symmetrical. GI: Abdomen is non-distended, Abd is soft and non tender X 4 quads. : No signs and/or symptoms were reported regarding the genitourinary system. Derm: Skin is pink, warm \T\ dry. Musculoskeletal: No signs and/or symptoms reported regarding the musculoskeletal system. Historical: - Allergies: 09:39 No Known Allergies; hb - Home Meds: 09:39 cholesterol medication [Active]; Pepcid AC Oral [Active]; hb - PMHx: 09:39 acid reflux; High Cholesterol; hb - PSHx: 09:39 Cholecystectomy; Hysterectomy; hb - Immunization history:: Adult Immunizations up to date. - Social history:: Smoking status: Patient denies any tobacco usage or history of. Patient/guardian denies using alcohol, street drugs, The patient lives with family. - Family history:: not pertinent. - Hospitalizations: : No recent hospitalization is reported. Screenin:40 Abuse screen: Denies threats or abuse. Denies injuries from another. Nutritional hb screening: No deficits noted. Tuberculosis screening: No symptoms or risk factors identified. Fall Risk None identified. Assessment: 09:42 General: SEE TRIAGE . hb 10:30 Reassessment: Patient appears in no apparent distress at this time. Patient and/or hb family updated on plan of care and expected duration. Pain level reassessed. Patient is alert, oriented x 3, equal unlabored respirations, skin warm/dry/pink. 11:30 Reassessment: Patient appears in no apparent distress at this time. Patient and/or hb family updated on plan of care and expected duration. Pain level reassessed. Patient is alert, oriented x 3, equal unlabored respirations, skin warm/dry/pink. 13:14 Reassessment: PT D/C HOME AMBULATORY WITH FRIEND, DX WITH CYSTITIS AND CONSTIPATION. bp Vital Signs: 09:35 BP 185 / 99; Pulse 112; Resp 16; Temp 98.9; Pulse Ox 99% on R/A; Weight 78.02 kg; hb Height 5 ft. (152.40 cm); Pain 7/10; 11:13 BP 147 / 63; Pulse 76; Resp 18; Pulse Ox 100% ; bp 12:37 BP 156 / 64; Pulse 86; Resp 17; Pulse Ox 98% ; bp 13:14 BP 141 / 62; Pulse 71; Resp 17; Pulse Ox 99% ; bp 09:35 Body Mass Index 33.59 (78.02 kg, 152.40 cm) hb ED Course: 09:10 Patient arrived in ED. ag5 09:11 Berenice Munoz MD is Private Physician. ag5 09:30 Koko Jordan MD is Attending Physician. ma2 09:31 Benita Riley, CORNELIA is Primary Nurse. hb 09:38 Triage completed. hb 09:39 Arm band placed on. hb 09:40 Patient has correct armband on for positive identification. Bed in low position. Call hb light in reach. Side rails up X 1. 09:53 Initial lab(s) drawn, by me, sent to lab. Inserted saline lock: 20 gauge in right dh3 antecubital area, using aseptic technique. Blood collected. 10:01 CT Abd/Pelvis - IV Contrast Only In Process Unspecified. EDMS 12:05 Urine Culture Sent. bd 13:14 No provider procedures requiring assistance completed. IV discontinued, intact, bp bleeding controlled, No redness/swelling at site. Pressure dressing applied. Administered Medications: 10:05 Drug: Zofran (Ondansetron) 4 mg Route: IVP; Site: right antecubital; bp 12:04 Follow up: Response: Nausea is decreased bp 10:05 Drug: NS 0.9% 1000 ml Route: IV; Rate: 1000 ml; Site: right antecubital; bp 13:17 Follow up: IV Status: Completed infusion; IV Intake: 1000ml bp 10:05 Drug: morphine 4 mg Route: IVP; Site: right antecubital; bp 12:04 Follow up: Response: Pain is decreased bp 12:00 Drug: Rocephin 1 grams Route: IV; Rate: calculated rate; Site: right antecubital; bp 13:16 Follow up: IV Status: Completed infusion; IV Intake: 20ml bp 12:15 Drug: Fleet Enema 133 ml Route: GA; bp 13:16 Follow up: Response: Marked relief of symptoms bp 12:37 Drug: ProTONIX 40 mg Route: IVP; Site: right antecubital; bp 13:16 Follow up: Response: Marked relief of symptoms bp Intake: 13:16 IV: 20ml; Total: 20ml. bp 13:17 IV: 1000ml; Total: 1020ml. bp Outcome: 12:42 Discharge ordered by MD. smith 13:14 Discharged to home ambulatory, with friend. bp 13:14 Condition: stable 13:14 Discharge instructions given to patient, Instructed on discharge instructions, follow up and referral plans. medication usage, Demonstrated understanding of instructions, follow-up care, medications, Prescriptions given X 4. 13:17 Patient left the ED. bp Addendum: 11/07/2019 07:25 Addendum: Culture Results: Positive urine culture. No further action required. Bacteria e b sensitive to prescribed antibiotic. Signatures: Dispatcher [employer] EDMS Dirrim, Shelby bd Riley, Benita, CORNELIA RN Marianela Storey 3 Ravi Palomares RN RN bp Koko Jordan MD MD ct2 Mirtha José, [place] 5
--- NOTE | 2019-11-04 12:43 | EDPHYS ---
Physician Documentation [facility] Name: Marce Vega Age: 64 yrs Sex: Female : 1955 Arrival Date: 11/04/2019 Time: 09:10 Bed 2 Private MD: Berenice Munoz R ED Physician Koko Jordan HPI: 11/03 10:07 This 64 yrs old Female presents to ER via Ambulatory with complaints of ma2 Abdominal Pain, Nausea/Vomiting. 10:07 The patient presents to the emergency department with vomiting, diarrhea, abdominal ma2 pain. Onset: The symptoms/episode began/occurred gradually, 2 day(s) ago. Associated signs and symptoms: Pertinent negatives: constipation, dysuria, flatulence, GI bleeding. Severity of symptoms: At their worst the symptoms were moderate in the emergency department the symptoms are unchanged. The patient has not experienced similar symptoms in the past. Historical: - Allergies: 09:39 No Known Allergies; hb - Home Meds: 09:39 cholesterol medication [Active]; Pepcid AC Oral [Active]; hb - PMHx: 09:39 acid reflux; High Cholesterol; hb - PSHx: 09:39 Cholecystectomy; Hysterectomy; hb - Immunization history:: Adult Immunizations up to date. - Social history:: Smoking status: Patient denies any tobacco usage or history of. Patient/guardian denies using alcohol, street drugs, The patient lives with family. - Family history:: not pertinent. - Hospitalizations: : No recent hospitalization is reported. ROS: 10:07 Constitutional: Negative for fever, chills, and weight loss. ma2 10:07 All other systems are negative. Exam: 10:07 Constitutional: This is a well developed, well nourished patient who is awake, alert, ma2 and in no acute distress. Head/Face: Normocephalic, atraumatic. Eyes: Pupils equal round and reactive to light, extra-ocular motions intact. Lids and lashes normal. Conjunctiva and sclera are non-icteric and not injected. Cornea within normal limits. Periorbital areas with no swelling, redness, or edema. ENT: Nares patent. No nasal discharge, no septal abnormalities noted. Tympanic membranes are normal and external auditory canals are clear. Oropharynx with no redness, swelling, or masses, exudates, or evidence of obstruction, uvula midline. Mucous membranes moist. Neck: Trachea midline, no thyromegaly or masses palpated, and no cervical lymphadenopathy. Supple, full range of motion without nuchal rigidity, or vertebral point tenderness. No Meningismus. Chest/axilla: Normal chest wall appearance and motion. Nontender with no deformity. No lesions are appreciated. Cardiovascular: Regular rate and rhythm with a normal S1 and S2. No gallops, murmurs, or rubs. Normal PMI, no JVD. No pulse deficits. Respiratory: Lungs have equal breath sounds bilaterally, clear to auscultation and percussion. No rales, rhonchi or wheezes noted. No increased work of breathing, no retractions or nasal flaring. Abdomen/GI: Soft, non-tender, with normal bowel sounds. No distension or tympany. No guarding or rebound. No evidence of tenderness throughout. Back: No spinal tenderness. No costovertebral tenderness. Full range of motion. Skin: Warm, dry with normal turgor. Normal color with no rashes, no lesions, and no evidence of cellulitis. MS/ Extremity: Pulses equal, no cyanosis. Neurovascular intact. Full, normal range of motion. Neuro: Awake and alert, GCS 15, oriented to person, place, time, and situation. Cranial nerves II-XII grossly intact. Motor strength 5/5 in all extremities. Sensory grossly intact. Cerebellar exam normal. Normal gait. Vital Signs: 09:35 BP 185 / 99; Pulse 112; Resp 16; Temp 98.9; Pulse Ox 99% on R/A; Weight 78.02 kg; hb Height 5 ft. (152.40 cm); Pain 7/10; 11:13 BP 147 / 63; Pulse 76; Resp 18; Pulse Ox 100% ; bp 12:37 BP 156 / 64; Pulse 86; Resp 17; Pulse Ox 98% ; bp 13:14 BP 141 / 62; Pulse 71; Resp 17; Pulse Ox 99% ; bp 09:35 Body Mass Index 33.59 (78.02 kg, 152.40 cm) hb MDM: 09:30 Patient medically screened. ma2 10:07 Differential diagnosis: gastritis, diverticulitis, viral gastroenteritis, ma2 gastroenteritis. 12:38 Data reviewed: vital signs, nurses notes. ma2 12:42 Counseling: I had a detailed discussion with the patient and/or guardian regarding: the ma2 historical points, exam findings, and any diagnostic results supporting the discharge/admit diagnosis, the presence of at least one elevated blood pressure reading (>120/80) during this emergency department visit, the need for outpatient follow up. Response to treatment: the patient's symptoms have markedly improved after treatment. 11/03 09:42 Order name: Basic Metabolic Panel; Complete Time: 11:45 ca2 11/03 09:42 Order name: CBC with Diff; Complete Time: 11:[address] [facility] 11/03 09:42 Order name: Hepatic Function; Complete Time: 11:45 ca2 11/03 09:42 Order name: Lipase; Complete Time: 11:45 ca2 11/03 10:18 Order name: CREATININE WHOLE BLOOD; Complete Time: 11:45 MS 11/03 10:22 Order name: Urine Microscopic Only; Complete Time: 11:45 dh3 11/03 09:42 Order name: CT Abd/Pelvis - IV Contrast Only; Complete Time: 11:[address] [facility] 11/03 10:52 Order name: Urine Dipstick--Ancillary (enter results); Complete Time: 11:45 bd 11/03 11:01 Order name: Manual Differential; Complete Time: 11:45 MS 11/03 11:09 Order name: Urine Culture [facility] 11/03 09:42 Order name: IV Saline Lock; Complete Time: 09:57 ca2 11/03 09:42 Order name: NPO; Complete Time: 09:[address] [facility] 11/03 09:42 Order name: Urine Dipstick-Ancillary (obtain specimen); Complete Time: 10:21 ma2 Administered Medications: 10:05 Drug: Zofran (Ondansetron) 4 mg Route: IVP; Site: right antecubital; bp 12:04 Follow up: Response: Nausea is decreased bp 10:05 Drug: NS 0.9% 1000 ml Route: IV; Rate: 1000 ml; Site: right antecubital; bp 13:17 Follow up: IV Status: Completed infusion; IV Intake: 1000ml bp 10:05 Drug: morphine 4 mg Route: IVP; Site: right antecubital; bp 12:04 Follow up: Response: Pain is decreased bp 12:00 Drug: Rocephin 1 grams Route: IV; Rate: calculated rate; Site: right antecubital; bp 13:16 Follow up: IV Status: Completed infusion; IV Intake: 20ml bp 12:15 Drug: Fleet Enema 133 ml Route: NM; bp 13:16 Follow up: Response: Marked relief of symptoms bp 12:37 Drug: ProTONIX 40 mg Route: IVP; Site: right antecubital; bp 13:16 Follow up: Response: Marked relief of symptoms bp Disposition: 11/04/19 12:42 Discharged to Home. Impression: Cystitis, unspecified without hematuria, Constipation. - Condition is Stable. - Discharge Instructions: Urinary Tract Infection, Adult. - Prescriptions for Fleet Enema - take 1 Cartridge by RECTAL route 2-3 times daily; 2 Cartridge. Colace 100 mg Oral Tablet - take 1 tablet by ORAL route every 12 hours; 14 tablet. Cipro 500 mg Oral Tablet - take 1 tablet by ORAL route every 12 hours for 7 days; 14 tablet. Diclofenac Sodium 75 mg Oral Tablet Sustained Release - take 1 tablet by ORAL route 2 times per day; 30 tablet. - Medication Reconciliation Form, Thank You Letter, Antibiotic Education, Prescription Opioid Use form. - Follow up: Private Physician; When: Tomorrow; Reason: Continuance of care. Signatures: Dispatcher [employer] EDMS Benita Riley RN RN Ravi Curtis RN RN bp Koko Jordan MD MD ma2 Corrections: (The following items were deleted from the chart) 13:17 12:42 11/04/2019 12:42 Discharged to Home. Impression: Cystitis, unspecified without bp hematuria; Constipation. Condition is Stable. Prescriptions for Fleet Enema - take 1 Cartridge by RECTAL route 2-3 times daily; 2 Cartridge, Colace 100 mg Oral Tablet - take 1 tablet by ORAL route every 12 hours; 14 tablet, Cipro 500 mg Oral Tablet - take 1 tablet by ORAL route every 12 hours for 7 days; 14 tablet, Diclofenac Sodium 75 mg Oral Tablet Sustained Release - take 1 tablet by ORAL route 2 times per day; 30 tablet. and Forms are Medication Reconciliation Form, Thank You Letter, Antibiotic Education, Prescription Opioid Use. Follow up: Private Physician; When: Tomorrow; Reason: Continuance of care. ma2
[2019-11-04 13:34] VITALS: TEMP 98.9
[2019-11-04 13:37] VITALS: BP 141/62; O2SAT 99
== END 2019-11-04 13:17 | disposition home or self-care (01) ==
LOC: ER 09:09
DX: N30.90 Cystitis, unspecified without hematuria (principal); K59.00 Constipation, unspecified; E78.00 Pure hypercholesterolemia, unspecified; K21.9 Gastro-esophageal reflux disease without esophagitis
CPT/HCPCS: 96365; 96361; 87088; 85025; 87086; 80048; 36415; 82565; 80076; 87077; 87186; 83690; 74177; 96375; 99284; Q9967; C9113; J0696; J7030; J2405; 81003; 81015

== ENCOUNTER → 2023-06-30 | Emergency (ER) | payer MEDICARE ==
[~2023-06-30] MED LIST: ACETAMINOPHEN 500 MG TAB ONE; CEFTRIAXONE 2000 MG/VIAL ONE; LEVETIRACETAM 500 MG/5 ML VIAL IV ONE; MORPHINE 4 MG/ML SYR ONE; NA CHLORIDE 0.9% 1,000 ML ONE; NA CHLORIDE 0.9% 200 ML ONE; ONDANSETRON 4 MG/2 ML VIAL ONE; dexAMETHasone 10 MG/ML VIAL ONE
[2023-06-30 08:05] LABS: Absolute Lymphocytes (CBC) 1.1 K/uL (0.7-4.9); Hematocrit 36.1 % (36.0-45.0); Lymphocytes % 43.8 % (15.3-44.8); MPV 6.6 fL (7.6-11.3); Platelets 238 thou/uL (152-406); RBC Red Blood Cell Count 3.44 M/uL (3.86-4.86)
[2023-06-30 08:11] LABS: Protime INR 1.13
[2023-06-30 08:25] LABS: Albumin 3.3 g/dL (3.4-5.0); Bilirubin Direct 0.2 mg/dL (0-0.2); Bilirubin Indirect, Calculated 0.3 mg/dL (0.2-0.8); Bilirubin Total 0.5 mg/dL (0.2-1.0); Magnesium 2.2 mg/dL (1.6-2.4); Potassium 3.8 mEq/L (3.5-5.1); Protein, Total 6.7 g/dL (6.4-8.2); Troponin High Sensitivity 4.6 pg/mL (<58.9)
--- NOTE | 2023-06-30 08:25 | RAD REPORT ---
EXAM DESCRIPTION: Marilyn Single View06/30/2023 8:13 am CLINICAL HISTORY: Cough COMPARISON: 2019 FINDINGS: The lungs appear clear of acute infiltrate. The heart is normal size IMPRESSION: No acute abnormalities displayed
--- NOTE | 2023-06-30 09:02 | RAD REPORT ---
EXAM DESCRIPTION: CT - Head Brain Wo Cont - 06/30/2023 8:45 am CLINICAL HISTORY: Headache COMPARISON: None TECHNIQUE: Computed axial tomography of the head was obtained. IV contrast was not requested. All CT scans are performed using dose optimization technique as appropriate and may include automated exposure control or mA/KV adjustment according to patient size. FINDINGS: Left craniotomy. 1.6 centimeter low-density area left frontal lobe. Additional moderate low-density areas within left frontal lobe white matter. Shift of midline structures 5 millimeter towards the right No intracranial bleed. No hydrocephalus. Fluid within the sinuses/ mastoids is not seen. IMPRESSION: Left craniotomy. Low-density areas left frontal lobe. This could be secondary to a mass with vasogenic edema. Another consideration is that these are all post treatment changes. Comparison with prior imaging would be he lpful. Alternatively an MRI brain could be obtained
--- NOTE | 2023-06-30 09:02 | RAD REPORT ---
EXAM DESCRIPTION: ODETTELinjose Angio06/30/2023 8:45 am CLINICAL HISTORY: Headache COMPARISON: None TECHNIQUE: 100 cc Isovue [address] angiogram of the neck was obtained. 3D MIPS reconstruction performed. All CT scans are performed using dose optimization technique as appropriate and may include automated exposure control or mA/KV adjustment according to patient size. FINDINGS: Mild plaque is present within common carotid, internal carotid and external carotid arteri es bilaterally Vertebral arteries unremarkable No dissection is seen. No high-grade stenosis IMPRESSION: No significant abnormality displayed Nascet crieria Mild stenosis 0 to 49 % Moderate stenosis 50-69% Severe stenosis 70-99%
--- NOTE | 2023-06-30 09:03 | RAD REPORT ---
EXAM DESCRIPTION: CTHead angio06/30/2023 8:45 am CLINICAL HISTORY: Headache COMPARISON: none TECHNIQUE: 100 cc Isovue [address] angiogram of the head was obtained. 3D MIPS reconstruction performed. All CT scans are performed using dose optimization technique as appropriate and may include automated exposure control or mA/KV adjustment according to patient size. FINDINGS: The distal internal carotid arteries, basilar, anterior cerebral, middle cerebral and post erior cerebral arteries do not demonstrate a significant stenosis An aneurysm is not seen No large vessel occlusion IMPRESSION: No significant abnormality is displayed
--- NOTE | 2023-06-30 09:34 | EDPHYS ---
Physician Documentation [facility] Name: Marce Vega Age: 68 yrs Sex: Female : 1955 Arrival Date: 06/30/2023 Time: 07:29 Bed 7 Private MD: SAM Physician Darrius West HPI: 06/30 09:19 This 68 yrs old Female presents to ER via Wheelchair with complaints of ramone Nausea, Headache. 09:19 The patient complains of pain to the forehead. The patient describes the headache as ramone aching, constant. Onset: The symptoms/episode began/occurred 1 day(s) ago. The patient presents to the emergency department with nausea. Onset: The symptoms/episode began/occurred 1 day(s) ago. Possible causes: unknown. The symptoms are aggravated by nothing. The symptoms are alleviated by nothing. Associated signs and symptoms: Pertinent positives: dizziness, nausea. Severity of symptoms: At its worst the pain was moderate, severe. Headache History: The patient has had previous headaches and this one is different than previous episodes. Associated signs and symptoms: Pertinent positives: nausea. Historical: - Allergies: 07:46 No Known Allergies; aa5 - PMHx: 07:46 acid reflux; Hypercholesterolemia; Hypertensive disorder; Headaches; Breast Cancer; aa5 Lung Cancer; - PSHx: 07:46 Brain (Cancer cells removed from brain); Right Lumpectomy; aa5 - Immunization history:: Adult Immunizations unknown. - Social history:: Smoking status: Patient denies any tobacco usage or history of. - Family history:: not pertinent. ROS: 09:19 Constitutional: Negative for fever, chills, and weight loss, Eyes: Negative for injury, ramone pain, redness, and discharge, ENT: Negative for injury, pain, and discharge, Neck: Negative for injury, pain, and swelling, Cardiovascular: Negative for chest pain, palpitations, and edema, Respiratory: Negative for shortness of breath, cough, wheezing, and pleuritic chest pain, Abdomen/GI: Negative for abdominal pain, nausea, vomiting, diarrhea, and constipation, Back: Negative for injury and pain, : Negative for injury, bleeding, discharge, and swelling, MS/Extremity: Negative for injury and deformity, Skin: Negative for injury, rash, and discoloration, Psych: Negative for depression, anxiety, suicide ideation, homicidal ideation, and hallucinations, Allergy/Immunology: Negative for hives, rash, and allergies, Endocrine: Negative for neck swelling, polydipsia, polyuria, polyphagia, and marked weight changes, Hematologic/Lymphatic: Negative for swollen nodes, abnormal bleeding, and unusual bruising, 09:19 Neuro: Positive for dizziness, headache, Exam: :19 Constitutional: This is a well developed, well nourished patient who is awake, alert, ramone and in no acute distress. Head/Face: Normocephalic, atraumatic. Eyes: Pupils equal round and reactive to light, extra-ocular motions intact. Lids and lashes normal. Conjunctiva and sclera are non-icteric and not injected. Cornea within normal limits. Periorbital areas with no swelling, redness, or edema. ENT: Nares patent. No nasal discharge, no septal abnormalities noted. Tympanic membranes are normal and external auditory canals are clear. Oropharynx with no redness, swelling, or masses, exudates, or evidence of obstruction, uvula midline. Mucous membranes moist. Neck: Trachea midline, no thyromegaly or masses palpated, and no cervical lymphadenopathy. Supple, full range of motion without nuchal rigidity, or vertebral point tenderness. No Meningismus. Chest/axilla: Normal chest wall appearance and motion. Nontender with no deformity. No lesions are appreciated. Cardiovascular: Regular rate and rhythm with a normal S1 and S2. No gallops, murmurs, or rubs. Normal PMI, no JVD. No pulse deficits. Respiratory: Lungs have equal breath sounds bilaterally, clear to auscultation and percussion. No rales, rhonchi or wheezes noted. No increased work of breathing, no retractions or nasal flaring. Abdomen/GI: Soft, non-tender, with normal bowel sounds. No distension or tympany. No guarding or rebound. No evidence of tenderness throughout. Back: No spinal tenderness. No costovertebral tenderness. Full range of motion. Skin: Warm, dry with normal turgor. Normal color with no rashes, no lesions, and no evidence of cellulitis. MS/ Extremity: Pulses equal, no cyanosis. Neurovascular intact. Full, normal range of motion. Neuro: Awake and alert, GCS 15, oriented to person, place, time, and situation. Cranial nerves II-XII grossly intact. Motor strength 5/5 in all extremities. Sensory grossly intact. Cerebellar exam normal. Normal gait. Psych: Awake, alert, with orientation to person, place and time. Behavior, mood, and affect are within normal limits. 09:19 ECG was reviewed by the Attending Physician. Vital Signs: 07:32 BP 144 / 82; Pulse 99; Resp 18 S; Temp 99.3(O); Pulse Ox 99% on R/A; Weight 79.38 kg aa5 (R); Height 5 ft. 0 in. (R); 10:28 BP 127 / 64; Pulse 84; Resp 16; Pulse Ox 100% on R/A; hb 11:24 BP 123 / 57; Pulse 79; Resp 16; Pulse Ox 97% on R/A; Pain 1/10; hb 07:32 Body Mass Index 34.18 (79.38 kg, 152.4 cm) aa5 11:24 Pain Scale: Adult hb Julio C Coma Score: 09:26 Eye Response: spontaneous(4). Motor Response: obeys commands(6). Verbal Response: ramone oriented(5). Total: 15. MDM: 07:32 Patient medically screened. ramone 09:26 Differential diagnosis: cerebral abscess, cluster headache, epidural hematoma, ramone Nonspecific abd pain, pancreatitis, hypoglycemia, hyponatremia, meningitis, migraine, neoplasm, subarachnoid bleed, subdural hematoma, tension headache, traumatic injuries, vasomotor headache. Data reviewed: vital signs, nurses notes, lab test result(s), EKG, radiologic studies, CT scan, plain films. Consideration of Admission/Observation Escalation of care including admission/observation considered. I considered the following discharge prescriptions or medication management in the emergency department Medications were administered in the Emergency Department. See MAR. Independent interpretation of the following test(s) in the Emergency Department EKG: See my EKG interpretation above. Test considered but Not performed: MRI: no mri brain. Historians other than the Patient: Family Member: family well informed. Care significantly affected by the following chronic conditions: Diabetes, Hypertension, Obesity, Cancer. 06/30 07:34 Order name: Basic Metabolic Panel; Complete Time: 09:03 ramone 06/30 07:34 Order name: CBC with Diff ramone 06/30 07:34 Order name: LFT's; Complete Time: 09:03 ramone 06/30 07:34 Order name: Magnesium; Complete Time: 09:03 [facility] 06/30 07:34 Order name: NT PRO-BNP; Complete Time: 09:03 [facility] 06/30 07:34 Order name: PT-INR; Complete Time: 09:03 [facility] 06/30 07:34 Order name: Troponin HS; Complete Time: 09:03 [facility] 06/30 08:41 Order name: CREATININE WHOLE BLOOD; Complete Time: 09:03 [facility] 06/30 09:57 Order name: CBC Smear Scan [facility] 06/30 07:34 Order name: XRAY Chest (1 view); Complete Time: 09:03 [facility] 06/30 07:34 Order name: CT Head Brain wo Cont; Complete Time: 09:03 [facility] 06/30 07:34 Order name: CT Head Angio; Complete Time: 09:06 [facility] 06/30 07:34 Order name: CT Neck Angio; Complete Time: 09:06 [facility] 06/30 07:34 Order name: EKG; Complete Time: 07:35 [facility] 06/30 07:34 Order name: Cardiac monitoring; Complete Time: 08:04 [facility] 06/30 07:34 Order name: EKG - Nurse/Tech; Complete Time: 08:02 [facility] 06/30 07:34 Order name: IV Saline Lock; Complete Time: 08:04 [facility] 06/30 07:34 Order name: Labs collected and sent; Complete Time: 08:04 [facility] 06/30 07:34 Order name: O2 Per Protocol; Complete Time: 07:53 [facility] 06/30 07:34 Order name: O2 Sat Monitoring; Complete Time: 07:53 [facility] 06/30 07:34 Order name: Seizure Precautions; Complete Time: 09:39 [facility] EC:19 Rate is 93 beats/min. Rhythm is regular. QRS [place] is Normal. [place] interval is normal. QRS ramone interval is normal. QT interval is normal. No Q waves. T waves are Normal. No ST changes noted. Clinical impression: NSR w/ Non-specific ST/T Changes and No evidence of ischemia. Interpreted by me. Reviewed by me. Administered Medications: 08:04 Drug: morphine IVP or IV 4 mg IVP once over 4 mins Route: IVP; Infused Over: 4 mins; hb Site: left antecubital; 08:04 Drug: Ondansetron IVP 4 mg IVP once; over 2 minutes Route: IVP; Site: left antecubital; 08:05 Drug: NS 0.9% IV 1000 ml IV at 125 ml/hr continuous Route: IV; Rate: 125 ml/hr; Site: left antecubital; 09:45 Drug: Decadron - Dexamethasone IVP 10 mg IVP once Route: IVP; Site: left antecubital; aa5 09:45 Drug: Keppra IV 1000 mg IV at per protocol once Route: IV; Rate: per protocol; Site: aa left antecubital; 09:45 Drug: Acetaminophen PO 1000 mg PO once Route: PO; aa5 10:25 Drug: Rocephin IV 2 grams IV at per protocol once; Given slow IV push per pharmarcy hb instructions Route: IV; Rate: per protocol; Site: left antecubital; Disposition Summary: 06/30/23 09:33 Transfer Ordered Notes: Transfer Location: [facility] ramone Reason: Higher level of care ramone Condition: Fair ramone Problem: new ramone Symptoms: have improved ramone Accepting Physician: to [facility](06/30/23 11:40) hb Diagnosis - Headache ramone - Secondary malignant neoplasm of brain - with VASOGENIC EDEMA ramone - Nausea ramone Forms: - Medication Reconciliation Form ramone - SBAR form ramone Signatures: Dispatcher [employer] EDDarrius Walker MD MD cha Calderon, Audri RN RN 5 Benita Riley RN RN Corrections: (The following items were deleted from the chart) 07:48 07:46 PMHx: High Cholesterol; [place] [id number] 09:33 09:33 to [facility] ramone 11:40 09:33 to [facility] hb
--- NOTE | 2023-06-30 09:34 | ER ---
Nurse's Notes [facility] Name: Marce Vega Age: 68 yrs Sex: Female : 1955 Arrival Date: 06/30/2023 Time: 07:29 Bed 7 Private MD: Diagnosis: Headache;Secondary malignant neoplasm of brain-with VASOGENIC EDEMA;Nausea Presentation: 06/30 07:32 Chief complaint: Patient states: headache since last night and nausea. Pt's sister aa5 states "she gets this headaches and she had brain sx back in December 2022". 07:32 Coronavirus screen: At this time, the client does not indicate any symptoms associated aa5 with coronavirus-19. Ebola Screen: Patient denies travel to an Ebola-affected area in the 21 days before illness onset. Initial Sepsis Screen: Does the patient meet any 2 criteria? HR > 90 bpm. Does the patient have a suspected source of infection? No. Patient's initial sepsis screen is negative. Risk Assessment: Do you want to hurt yourself or someone else? Patient reports no desire to harm self or others. Onset of symptoms was June 2023. 07:32 Acuity: HOLLI 3 aa5 07:32 Method Of Arrival: Wheelchair aa5 Historical: - Allergies: 07:46 No Known Allergies; aa5 - PMHx: 07:46 acid reflux; Hypercholesterolemia; Hypertensive disorder; Headaches; Breast Cancer; aa5 Lung Cancer; - PSHx: 07:46 Brain (Cancer cells removed from brain); Right Lumpectomy; aa5 - Immunization history:: Adult Immunizations unknown. - Social history:: Smoking status: Patient denies any tobacco usage or history of. - Family history:: not pertinent. Screenin:58 [facility] ED Fall Risk Assessment (Adult) Score/Fall Risk Level 0 - 2 = Low Risk hb Oriented to surroundings, Maintained a safe environment, Educated pt \\T\\ family on fall prevention, incl call for assistance when getting out of bed. Abuse screen: Denies threats or abuse. Denies injuries from another. Nutritional screening: No deficits noted. Tuberculosis screening: No symptoms or risk factors identified. Assessment: 10:28 Reassessment: Patient appears in no apparent distress at this time. Patient and/or hb family updated on plan of care and expected duration. Pain level reassessed. Patient is alert, oriented x 3, equal unlabored respirations, skin warm/dry/pink. 11:22 Reassessment: Patient appears in no apparent distress at this time. Patient and/or hb family updated on plan of care and expected duration. Pain level reassessed. Patient is alert, oriented x 3, equal unlabored respirations, skin warm/dry/pink. Vital Signs: 07:32 BP 144 / 82; Pulse 99; Resp 18 S; Temp 99.3(O); Pulse Ox 99% on R/A; Weight 79.38 kg aa5 (R); Height 5 ft. 0 in. (R); 10:28 BP 127 / 64; Pulse 84; Resp 16; Pulse Ox 100% on R/A; hb 11:24 BP 123 / 57; Pulse 79; Resp 16; Pulse Ox 97% on R/A; Pain 1/10; hb 07:32 Body Mass Index 34.18 (79.38 kg, 152.4 cm) aa5 11:24 Pain Scale: Adult hb Julio C Coma Score: 09:26 Eye Response: spontaneous(4). Motor Response: obeys commands(6). Verbal Response: ramone oriented(5). Total: 15. ED Course: 07:30 Patient arrived in ED. mg5 07:32 Darrius West MD is Attending Physician. ramone 07:32 Arm band placed on. aa5 07:49 Triage completed. aa5 07:54 Missed attempt(s): 22 gauge in left wrist. Bleeding controlled, band aid applied, hb catheter tip intact. 07:57 Missed attempt(s): 22 gauge in left antecubital area. Bleeding controlled, band aid hb applied, catheter tip intact. 08:00 Inserted saline lock: 22 gauge in left antecubital area, using aseptic technique. aa5 08:02 EKG done, by ED staff. aw1 08:04 Basic Metabolic Panel Sent. hb 08:04 CBC with Diff Sent. hb 08:04 LFT's Sent. hb 08:04 Magnesium Sent. hb 08:04 NT PRO-BNP Sent. hb 08:04 PT-INR Sent. hb 08:04 Troponin HS Sent. hb 08:15 Patient has correct armband on for positive identification. Provided Education on: hb tests, result times. 08:16 XRAY Chest (1 view) In Process Unspecified. EDMS 08:44 CT Head Brain wo Cont In Process Unspecified. EDMS 08:47 CT Head Angio In Process Unspecified. EDMS 08:47 CT Neck Angio In Process Unspecified. EDMS 10:[address] West called [facility] for Transfer. 0938 Dr. Jimbo Valdes accepted pt to [facility] ER sp 0940 Paulina Baez admin approval [id number] report number [id number] called [facility] talked to [facility] for Transport. 11:40 Benita Riley, RN is Primary Nurse. hb Administered Medications: 08:04 Drug: morphine IVP or IV 4 mg IVP once over 4 mins Route: IVP; Infused Over: 4 mins; hb Site: left antecubital; 08:04 Drug: Ondansetron IVP 4 mg IVP once; over 2 minutes Route: IVP; Site: left antecubital; hb 08:05 Drug: NS 0.9% IV 1000 ml IV at 125 ml/hr continuous Route: IV; Rate: 125 ml/hr; Site: hb left antecubital; 09:45 Drug: Decadron - Dexamethasone IVP 10 mg IVP once Route: IVP; Site: left antecubital; aa5 09:45 Drug: Keppra IV 1000 mg IV at per protocol once Route: IV; Rate: per protocol; Site: aa5 left antecubital; 09:45 Drug: Acetaminophen PO 1000 mg PO once Route: PO; aa5 10:25 Drug: Rocephin IV 2 grams IV at per protocol once; Given slow IV push per pharmarcy hb instructions Route: IV; Rate: per protocol; Site: left antecubital; Medication: 10:58 VIS not applicable for this client. hb Outcome: 09:33 ER care complete, transfer ordered by MD. pack 11:40 Transferred by ground EMS to [facility], 11:40 Condition: stable 11:40 Instructed on the need for transfer, Demonstrated understanding of instructions, 11:40 Patient left the ED. hb Signatures: Dispatcher [employer] Darrius Ward MD MD cha Pinkerton, Shawna sp Calderon, Audri, RN RN aa5 Benita Riley, CORNELIA RN Gabrielle Self aw1 Carolina Berkowitz mg5 Corrections: (The following items were deleted from the chart) 07:48 07:46 PMHx: High Cholesterol; aa5 aa5
[2023-06-30 09:57] LABS: Blood Morphology Comment NOT SEEN (NOT SEEN); Platelet Estimate ADEQ; White Blood Cell Scan OK (OK)
[2023-06-30 11:54] VITALS: TEMP 99.3
[2023-06-30 12:15] VITALS: BP 123/57; O2SAT 97
--- NOTE | 2023-07-03 11:05 | EKG ---
Test Date: 2023-06-30 Test Time: 07:59:34 Tower Helper: HEATHER MEASUREMENT RESULTS: Intervals: Rate: 93 IA: 172 QRSD: 78 QT: 336 QTc: 417 [place]ven: P: 57 IA: 172 QRS: 1 T: 30 INTERPRETIVE STATEMENTS: Normal sinus rhythm Anterolateral infarct, age undetermined Abnormal ECG Compared to ECG 02/22/2019 15:12:41 Sinus bradycardia no longer present Myocardial infarct finding still present Electronically Signed On 07-03-23 11:00:04 [employer] by Agustin Elam
== END ==
LOC: ER 07:29
DX: C79.31 Secondary malignant neoplasm of brain (principal); R11.0 Nausea; Z85.3 Personal history of malignant neoplasm of breast; Z85.118 Personal history of other malignant neoplasm of bronchus and lung; I10 Essential (primary) hypertension
CPT/HCPCS: 85025; 80048; 36415; 83735; 85610; 82565; 80076; 84484; 83880; 70450; 70496; 70498; 71045; 96375; 96374; 99285; Q9967; J1953; J1100; J2405; J0696; J7030; 93005